=== PATIENT | female | born 1935 | race Caucasian/White ===

== ENCOUNTER 2020-11-01 19:04 | Observation (INO) | payer MEDICARE, BC ==
[~2020-11-01] VITALS: Ht 157.5 cm; Wt 42.8 kg
[2020-11-01 20:29] LABS: BASOPHILS % (AUTO) 0.5 % (0-1); EOSINOPHILS % (AUTO) 0.1 % (0-6); HEMATOCRIT 42.9 % (35.0-45.0); HEMOGLOBIN 14.2 g/dl (12.0-16.0); LYMPHOCYTES # (AUTO) 0.9 X10'3 (1.1-4.8); LYMPHOCYTES % (AUTO) 9.7 % (21-51); MEAN CORPUSCULAR HEMOGLOBIN 30.9 PG (27.0-31.0); MEAN CORPUSCULAR HGB CONC 33.1 g/dL (33.0-36.5); MEAN CORPUSCULAR VOLUME 93.4 FL (78-98); MEAN PLATELET VOLUME 6.5 FL (7.4-10.4); MONOCYTES # (AUTO) 0.4 X10'3 (0-0.9); MONOCYTES % (AUTO) 4.4 % (2-12); NEUTROPHILS # (AUTO) 7.7 X10'3 (1.8-7.7); NEUTROPHILS % (AUTO) 85.3 % (42-75); PLATELET COUNT 318 X10'3 (140-440); RED CELL DISTRIBUTION WIDTH 13.6 % (11.5-14.5)
[2020-11-01 20:50] LABS: ALANINE AMINOTRANSFERASE 27 U/L (12-78); ALBUMIN 4.3 G/DL (3.4-5.0); ALBUMIN/GLOBULIN RATIO 1.2 (1.1-1.5); ALKALINE PHOSPHATASE 65 IU/L (46-116); ANION GAP 14 (8-16); ASPARTATE AMINO TRANSFERASE 24 U/L (10-37); BILIRUBIN,TOTAL 0.6 MG/DL (0.1-1.0); BLOOD UREA NITROGEN 22 MG/DL (7-18); BUN/CREATININE RATIO 12.3 (6.6-38.0); CALCIUM 9.3 MG/DL (8.5-10.1); CHLORIDE 98 MMOL/L (99-107); CREATININE 1.79 MG/DL (0.40-0.90); GLUCOSE 109 MG/DL (70-104); POTASSIUM 4.7 MMOL/L (3.5-5.1); SODIUM 137 MMOL/L (135-145); TOTAL CARBON DIOXIDE 25.5 MMOL/L (24-32); TOTAL PROTEIN 7.8 G/DL (6.4-8.2); eGFR 27 ML/MIN
[2020-11-01] MEDS ORDERED: normal saline 1000ml 1,000 ML IV ONE (21:05)
[2020-11-01 21:35] LABS: TROPONIN I < 0.04 NG/ML (0.0-0.05)
[2020-11-01 21:38] LABS: CLARITY,URINE CLEAR (Clear); COLOR,URINE YELLOW (Yellow); GLUCOSE, URINE NEGATIVE (Neg); KETONES,URINE NEGATIVE (Neg); OCCULT BLOOD,URINE NEGATIVE (Neg); PH,URINE 7.5 (4.8-8.0); PROTEIN,URINE NEGATIVE (Neg); UA COLLECTION TYPE URINAL
[2020-11-01 21:39] LABS: LEUKOCYTE ESTERASE ,URINE MODERATE (Neg); NITRITES, URINE NEGATIVE (Neg); RBC,URINE 0-2 /HPF (0-2); UROBILINOGEN,URINE 0.2 E.U/dL (0.2-1.0)
[2020-11-01 21:40] LABS: BACTERIA,URINE NONE SEEN /HPF (Neg); SQUAMOUS EPITHELIAL CELL,UR FEW /LPF (FEW); WBC,URINE 0-4 /HPF (0-4)
[2020-11-01 21:58] LABS: URINE AMPHETAMINE SCREEN NEGATIVE (Neg); URINE BARBITUATE SCREEN NEGATIVE (Neg); URINE BENZODIAZEPINES SCREEN NEGATIVE (Neg); URINE CANNABINOID SCREEN NEGATIVE (Neg); URINE COCAINE SCREEN NEGATIVE (Neg); URINE METHADONE SCREEN NEGATIVE (Neg); URINE OPIATE SCREEN NEGATIVE (Neg); URINE PHENCYCLIDINE SCREEN NEGATIVE (Neg)
[2020-11-01] MEDS ORDERED: CefTRIAXone 1000mg IM Kit (w/lidocaine diluent) IM ONE (23:20)
[2020-11-02] MEDS ORDERED: CefTRIAXone/D5W-Rocephin 1gm 50 ML IV ONE (00:35)
[2020-11-02] MEDS ORDERED: acetaminophen 325mg tablet PO ONE (00:45)
[2020-11-02] MEDS ORDERED: potassium Cl 40MEQ/1/2NS 520ml 520 ML IV PRN ×2 (02:05)
[2020-11-02] MEDS ORDERED: potassium Cl 20 mEq SR tablet PO PRN ×2 (02:05)
[2020-11-02] MEDS ORDERED: ondansetron/PF 4mg/2ml inj IV PRN (02:05)
[2020-11-02] MEDS ORDERED: magnesium Cl slow-release 64mg tablet PO PRN (02:05)
[2020-11-02] MEDS ORDERED: acetaminophen 325mg tablet PO PRN (02:05)
[2020-11-02] MEDS ORDERED: magnesium 4gm in 100ml NS 100 ML IV PRN (02:05)
[2020-11-02] MEDS ORDERED: magnesium 2GM in 50ml NS 50 ML IV PRN (02:05)
--- NOTE | 2020-11-02 04:00 | NUR ---
attempted to comlpete med rec. pt doesn't know medications as there were recent medication changes in past month. pharmacy aware and will call for updated medcation list in mookie morning.
--- NOTE | 2020-11-02 07:06 | NUR ---
patient received on bed asleep.
[2020-11-02] MEDS ORDERED: K and/or MAG REPLACEMENT MC SCH (08:00)
[2020-11-02] MEDS ORDERED: PERFLUTREN PROTEIN-A MICROSPHR (Optison) 0.22 MG/ML 3ML VIAL IV ONE (08:00)
--- NOTE | 2020-11-02 08:26 | NUR ---
patient placed into a gown,up in the bathroom with steady gait.Vital signs rechecked.
--- NOTE | 2020-11-02 09:39 | NUR ---
patient ate breakfast.
--- NOTE | 2020-11-02 10:52 | NUR ---
paged Dr. Alarcon to address med rec.
[2020-11-02] MEDS ORDERED: LOSA25TA96 PO (10:54)
[2020-11-02] MEDS ORDERED: PRAM2.252 PO (10:54)
--- NOTE | 2020-11-02 12:13 | NUR ---
Dr. Alarcon here, reminded MD regarding med rec.
--- NOTE | 2020-11-02 12:14 | NUR ---
patient back from MRI.
--- NOTE | 2020-11-02 12:19 | NUR ---
awaiting MRI result.
[2020-11-02] MEDS ORDERED: GABA-530 PO (13:24)
[2020-11-02] MEDS ORDERED: VORT20TA PO (13:24)
[2020-11-02] MEDS ORDERED: DICL50TA14 PO (13:24)
[2020-11-02] MEDS ORDERED: PRAM0.375 PO (13:24)
[2020-11-02] MEDS ORDERED: NEBI5TAB10 PO (13:24)
[2020-11-02] MEDS ORDERED: FURO20TA4 PO (13:24)
[2020-11-02] MEDS ORDERED: ROSU40TA22 PO (13:24)
[2020-11-02] MEDS ORDERED: LOSA50TA64 PO (13:24)
[2020-11-02] MEDS ORDERED: FLUT16SP26 BOTHNARES (13:24)
--- NOTE | 2020-11-02 13:25 | NUR ---
computer service technician at bedside.
[2020-11-02] MEDS ORDERED: ASPI-1264 PO (16:02)
[2020-11-02 16:48] VITALS: BP 176/94
[2020-11-02] MEDS ORDERED: SUMA100T16 PO (18:16)
== END 2020-11-02 19:00 | disposition home or self-care (01) ==
LOC: ER 19:05 → ED HOLD 11-02 02:01
PROVIDERS: ADMIT Internal Medicine; ATTEND Internal Medicine
DX: G43.909 Migraine, unspecified, not intractable, without status migrainosus (principal); I10 Essential (primary) hypertension; E78.5 Hyperlipidemia, unspecified; N39.0 Urinary tract infection, site not specified; G51.0 Bell's palsy; R47.81 Slurred speech; I25.10 Atherosclerotic heart disease of native coronary artery without angina pectoris; Z79.899 Other long term (current) drug therapy; Z79.82 Long term (current) use of aspirin; Z87.891 Personal history of nicotine dependence; Z95.1 Presence of aortocoronary bypass graft
CPT/HCPCS: 36415; 70450; 70544; 70547; 70551; 71045; 80053; 80305; 81001; 84484; 85025; 87088; 93005; 93306; 96361; 96365; 99285; G0378; J0696; J7030

== ENCOUNTER 2022-03-17 09:42 | Emergency (ER) | payer MEDICARE, BC ==
[~2022-03-17] VITALS: Ht 154.9 cm; Wt 45.5 kg
[~2022-03-17 09:42] MED LIST: DICL50TA14 PO; FLUT16SP26 BOTHNARES; FURO20TA4 PO; GABA-530 PO; LOSA50TA64 PO; NEBI5TAB10 PO; PRAM0.375 PO; ROSU40TA22 PO; SUMA100T16 PO; VORT20TA PO
[2022-03-17 10:12] VITALS: BP 191/97
== END 2022-03-17 11:58 | disposition home or self-care (01) ==
LOC: ER 09:42
DX: M48.061 Spinal stenosis, lumbar region without neurogenic claudication (principal)
CPT/HCPCS: 73502; 99283

== ENCOUNTER 2023-08-28 08:33 | Emergency (ER) | payer MEDICARE, BC ==
[~2023-08-28] VITALS: Ht 152.4 cm; Wt 42.8 kg
[~2023-08-28 08:33] MED LIST changes: -NEBI5TAB10 PO; +NEBI5TAB9 PO; -ROSU40TA22 PO; +ROSU40TA71 PO
[2023-08-28 10:26] LABS: BASOPHILS # (AUTO) 0.1 X10'3 (0-0.2); BASOPHILS % (AUTO) 1.3 % (0-1); EOSINOPHILS # (AUTO) 0.3 X10'3 (0-0.9); EOSINOPHILS % (AUTO) 4.9 % (0-6); HEMATOCRIT 35.3 % (35.0-45.0); HEMOGLOBIN 11.5 g/dl (12.0-16.0); LYMPHOCYTES # (AUTO) 1.6 X10'3 (1.1-4.8); LYMPHOCYTES % (AUTO) 24.9 % (21-51); MEAN CORPUSCULAR HEMOGLOBIN 29.8 PG (27.0-31.0); MEAN CORPUSCULAR HGB CONC 32.7 g/dL (33.0-36.5); MEAN PLATELET VOLUME 6.7 FL (7.4-10.4); MONOCYTES # (AUTO) 0.8 X10'3 (0-0.9); MONOCYTES % (AUTO) 12.1 % (2-12); NEUTROPHILS # (AUTO) 3.7 X10'3 (1.8-7.7); NEUTROPHILS % (AUTO) 56.8 % (42-75); PLATELET COUNT 303 X10'3 (140-440); RED BLOOD COUNT 3.88 X10'6 (4.20-5.60); RED CELL DISTRIBUTION WIDTH 14.8 % (11.5-14.5); WHITE BLOOD COUNT 6.5 X10'3 (4.5-11.0)
[2023-08-28 10:46] LABS: ALANINE AMINOTRANSFERASE 23 U/L (12-78); ALBUMIN 3.4 G/DL (3.4-5.0); ALBUMIN/GLOBULIN RATIO 1.3 (1.1-1.5); ALKALINE PHOSPHATASE 86 IU/L (46-116); ANION GAP 8 (8-16); ASPARTATE AMINO TRANSFERASE 19 U/L (10-37); BILIRUBIN,TOTAL 0.4 MG/DL (0.1-1.0); BLOOD UREA NITROGEN 19 MG/DL (7-18); BUN/CREATININE RATIO 10.9 (10.0-20.0); CHLORIDE 97 MMOL/L (99-107); CREATININE 1.75 MG/DL (0.40-0.90); GLUCOSE 95 MG/DL (70-104); POTASSIUM 3.4 MMOL/L (3.5-5.1); SODIUM 131 MMOL/L (135-145); TOTAL CARBON DIOXIDE 26.5 MMOL/L (24-32); eCRCL 16 ML/MIN; eGFR 28 ML/MIN
[2023-08-28] MEDS ORDERED: HYDR-3965 PO (12:55)
[2023-08-28 13:25] VITALS: BP 154/76; PULSE 74; RESP 18; TEMP 97.7; O2SAT 99
[2023-08-29] MEDS ORDERED: HYDR-3965 PO ×2 (11:48→11:49)
== END 2023-08-28 13:25 | disposition home or self-care (01) ==
LOC: ER 08:34
DX: M25.512 Pain in left shoulder (principal); M54.2 Cervicalgia; Z79.899 Other long term (current) drug therapy
CPT/HCPCS: 36415; 71045; 72125; 73030; 80053; 84484; 85025; 93005; 99285

== ENCOUNTER 2024-01-09 15:40 | Emergency (ER) | payer MEDICARE, BC ==
[~2024-01-09] VITALS: Ht 152.4 cm; Wt 41.8 kg
[~2024-01-09 15:40] MED LIST changes: -DICL50TA14 PO; +HYDR-3965 PO; -PRAM0.375 PO; -ROSU40TA71 PO; -SUMA100T16 PO; -VORT20TA PO
[2024-01-09 16:23] LABS: BASOPHILS % (AUTO) 0.4 % (0-1); EOSINOPHILS % (AUTO) 0.2 % (0-6); HEMOGLOBIN 9.4 g/dl (12.0-16.0); LYMPHOCYTES # (AUTO) 0.8 X10'3 (1.1-4.8); LYMPHOCYTES % (AUTO) 10.3 % (21-51); MEAN CORPUSCULAR HEMOGLOBIN 31.5 PG (27.0-31.0); MEAN CORPUSCULAR HGB CONC 33.4 g/dL (33.0-36.5); MEAN CORPUSCULAR VOLUME 94.2 FL (78-98); MEAN PLATELET VOLUME 6.8 FL (7.4-10.4); MONOCYTES # (AUTO) 0.5 X10'3 (0-0.9); MONOCYTES % (AUTO) 6.7 % (2-12); NEUTROPHILS # (AUTO) 6.2 X10'3 (1.8-7.7); NEUTROPHILS % (AUTO) 82.4 % (42-75); PLATELET COUNT 384 X10'3 (140-440); RED BLOOD COUNT 2.98 X10'6 (4.20-5.60); RED CELL DISTRIBUTION WIDTH 14.7 % (11.5-14.5); WHITE BLOOD COUNT 7.5 X10'3 (4.5-11.0)
[2024-01-09 16:38] LABS: ANION GAP 12 (8-16); BLOOD UREA NITROGEN 42 MG/DL (7-18); BUN/CREATININE RATIO 14.2 (10.0-20.0); CALCIUM 8.9 MG/DL (8.5-10.1); CHLORIDE 99 MMOL/L (99-107); CREATININE 2.96 MG/DL (0.40-0.90); GLUCOSE 107 MG/DL (70-104); MAGNESIUM 2.3 MG/DL (1.5-2.4); POTASSIUM 3.8 MMOL/L (3.5-5.1); PRO BRAIN NATRIURETIC PEPTIDE 1728 PG/ML (0-450); SODIUM 134 MMOL/L (135-145); TOTAL CARBON DIOXIDE 22.7 MMOL/L (24-32); eCRCL 9 ML/MIN; eGFR 15 ML/MIN
[2024-01-09] MEDS: normal saline 500ml IV soln 500 ML IV ONE (20:30)
[2024-01-09 20:59] LABS: BILIRUBIN,URINE NEGATIVE (Neg); CLARITY,URINE CLEAR (Clear); COLOR,URINE YELLOW (Yellow); GLUCOSE, URINE NEGATIVE (Neg); KETONES,URINE TRACE mg/dl (Neg); LEUKOCYTE ESTERASE ,URINE SMALL (Neg); NITRITES, URINE NEGATIVE (Neg); OCCULT BLOOD,URINE NEGATIVE (Neg); PH,URINE 5.5 (4.8-8.0); PROTEIN,URINE NEGATIVE (Neg); UROBILINOGEN,URINE 0.2 E.U/dL (0.2-1.0)
[2024-01-09 21:02] LABS: UA COLLECTION TYPE CLN CATCH MIDSTREAM
[2024-01-09] MEDS ORDERED: CEPH-585 PO (21:12)
[2024-01-09 21:13] LABS: BACTERIA,URINE FEW /HPF (Neg); MUCUS STRANDS MODERATE /LPF (Neg); SQUAMOUS EPITHELIAL CELL,UR MODERATE /LPF (FEW); TRANSITIONAL EPI CELLS,URINE FEW /HPF
[2024-01-09 21:14] LABS: HYALINE CASTS 0-3 /LPF (NEGATIVE); RBC,URINE NONE SEEN /HPF (0-2)
[2024-01-09] MEDS: aspirin 81mg tab.chew PO ONE (21:28)
[2024-01-09] MEDS: CefTRIAXone/D5W-Rocephin 1gm 50 ML IV ONE (21:28)
[2024-01-09 23:04] VITALS: BP 127/61; PULSE 87; RESP 15; TEMP 97.1; O2SAT 100
== END 2024-01-09 23:05 | disposition home or self-care (01) ==
LOC: ER 15:42
DX: E87.1 Hypo-osmolality and hyponatremia (principal); N39.0 Urinary tract infection, site not specified; Z79.52 Long term (current) use of systemic steroids; Z79.899 Other long term (current) drug therapy
CPT/HCPCS: 36415; 71045; 80048; 81001; 83735; 83880; 84484; 85025; 87088; 93005; 96361; 96365; 99285; J0696; J7030; J7040

== ENCOUNTER 2024-01-24 12:52 | Inpatient (IN) | payer MEDICARE, BC ==
[~2024-01-24] VITALS: Ht 157.5 cm; Wt 43.1 kg
[2024-01-24 13:30] LABS: BASOPHILS % (AUTO) 0.6 % (0-1); EOSINOPHILS % (AUTO) 0.5 % (0-6); HEMATOCRIT 25.9 % (35.0-45.0); HEMOGLOBIN 8.6 g/dl (12.0-16.0); LYMPHOCYTES # (AUTO) 1.5 X10'3 (1.1-4.8); LYMPHOCYTES % (AUTO) 19.1 % (21-51); MEAN CORPUSCULAR HEMOGLOBIN 30.4 PG (27.0-31.0); MEAN CORPUSCULAR VOLUME 92.1 FL (78-98); MEAN PLATELET VOLUME 6.7 FL (7.4-10.4); MONOCYTES # (AUTO) 0.7 X10'3 (0-0.9); MONOCYTES % (AUTO) 8.8 % (2-12); NEUTROPHILS # (AUTO) 5.6 X10'3 (1.8-7.7); PLATELET COUNT 415 X10'3 (140-440); RED BLOOD COUNT 2.81 X10'6 (4.20-5.60); WHITE BLOOD COUNT 7.9 X10'3 (4.5-11.0)
[2024-01-24 13:37] LABS: ALANINE AMINOTRANSFERASE 20 U/L (12-78); ALBUMIN 3.5 G/DL (3.4-5.0); ALBUMIN/GLOBULIN RATIO 1.1 (1.1-1.5); ALKALINE PHOSPHATASE 86 IU/L (46-116); ANION GAP 9 (8-16); ASPARTATE AMINO TRANSFERASE 20 U/L (10-37); BILIRUBIN,TOTAL 0.4 MG/DL (0.1-1.0); BLOOD UREA NITROGEN 14 MG/DL (7-18); BUN/CREATININE RATIO 7.4 (10.0-20.0); CALCIUM 8.4 MG/DL (8.5-10.1); CHLORIDE 99 MMOL/L (99-107); CREATININE 1.88 MG/DL (0.40-0.90); GLUCOSE 111 MG/DL (70-104); POTASSIUM 3.7 MMOL/L (3.5-5.1); SODIUM 133 MMOL/L (135-145); TOTAL CARBON DIOXIDE 24.6 MMOL/L (24-32); TOTAL PROTEIN 6.6 G/DL (6.4-8.2); eCRCL 15 ML/MIN; eGFR 25 ML/MIN
[2024-01-24 13:44] LABS: PRO BRAIN NATRIURETIC PEPTIDE 3747 PG/ML (0-450)
[2024-01-24] MEDS ORDERED: enoxaparin 100mg/ml syringe SUBCUT ONE (18:55)
[2024-01-24] MEDS: enoxaparin 40mg/0.4ml syringe SUBCUT ONE (19:20)
[2024-01-24 20:38] LABS: APTT 27 SECONDS (22-32); PROTHROMBIN TIME 10.8 SECONDS (9.0-12.0)
[2024-01-24] MEDS ORDERED: nitroGLYCERIN 0.4mg SUBLingual tab SL PRN (21:50)
[2024-01-24] MEDS ORDERED: metoprolol tartrate 1mg/ml inj IV PRN (21:50)
[2024-01-24] MEDS ORDERED: potassium Cl 40MEQ/1/2NS 520ml 520 ML IV PRN (21:50)
[2024-01-24] MEDS ORDERED: aminophylline 250mg/10ml inj. IV PRN (21:50)
[2024-01-24] MEDS ORDERED: magnesium Cl slow-release 64mg tablet PO PRN (21:50)
[2024-01-24] MEDS ORDERED: potassium Cl 20 mEq SR tablet PO PRN ×2 (21:50)
[2024-01-24] MEDS ORDERED: magnesium sulf-water 4G/100mL 100 ML IV PRN (21:50)
[2024-01-24] MEDS ORDERED: ondansetron/PF 4mg/2ml inj IV PRN (21:50)
[2024-01-24] MEDS ORDERED: magnesium hydroxide 30ml (MOM) UD suspension PO PRN (21:50)
[2024-01-24] MEDS ORDERED: mag hydrox/Alum hydrox/simeth 30ml oral suspension PO PRN (21:50)
[2024-01-24] MEDS ORDERED: magnesium sulf-water 2g/50mL 50 ML IV PRN (21:50)
[2024-01-24] MEDS: PERFLUTREN PROTEIN-A MICROSPHR (Optison) 0.22 MG/ML 3ML VIAL IV ONE (22:08)
[2024-01-24] MEDS: Melatonin 3mg tablet PO STA (23:51)
[2024-01-25] VITALS (22 sets, daily range): BP systolic 95–156; BP diastolic 42–82; PULSE 61–114; RESP 16–26; TEMP 96.7–99.1; O2SAT 93–100
[2024-01-25 03:17] LABS: BASOPHILS # (AUTO) 0.1 X10'3 (0-0.2); BASOPHILS % (AUTO) 0.8 % (0-1); EOSINOPHILS # (AUTO) 0.1 X10'3 (0-0.9); EOSINOPHILS % (AUTO) 1.2 % (0-6); LYMPHOCYTES # (AUTO) 2.1 X10'3 (1.1-4.8); MEAN CORPUSCULAR HEMOGLOBIN 30.5 PG (27.0-31.0); MEAN CORPUSCULAR HGB CONC 33.2 g/dL (33.0-36.5); MEAN PLATELET VOLUME 6.3 FL (7.4-10.4); MONOCYTES # (AUTO) 0.9 X10'3 (0-0.9); NEUTROPHILS # (AUTO) 4.5 X10'3 (1.8-7.7); PLATELET COUNT 333 X10'3 (140-440); RED BLOOD COUNT 2.31 X10'6 (4.20-5.60); RED CELL DISTRIBUTION WIDTH 15.2 % (11.5-14.5); WHITE BLOOD COUNT 7.6 X10'3 (4.5-11.0)
[2024-01-25 03:29] LABS: HEMATOCRIT 21.2 % (35.0-45.0)
[2024-01-25 03:40] LABS: ALBUMIN 2.8 G/DL (3.4-5.0); ANION GAP 6 (8-16); BLOOD UREA NITROGEN 27 MG/DL (7-18); BUN/CREATININE RATIO 15.3 (10.0-20.0); CALCIUM 8.1 MG/DL (8.5-10.1); CHLORIDE 100 MMOL/L (99-107); CREATININE 1.76 MG/DL (0.40-0.90); GLUCOSE 93 MG/DL (70-104); MAGNESIUM 1.9 MG/DL (1.5-2.4); SODIUM 133 MMOL/L (135-145); eCRCL 16 ML/MIN; eGFR 27 ML/MIN
[2024-01-25 04:03] LABS: FERRITIN 13 NG/ML (8-252)
[2024-01-25] MEDS: docusate sod 100mg capsule PO SCH (08:00)
[2024-01-25] MEDS: K and/or MAG REPLACEMENT MC SCH (08:00)
[2024-01-25 08:16] LABS: BASOPHILS # (AUTO) 0.1 X10'3 (0-0.2); BASOPHILS % (AUTO) 0.5 % (0-1); EOSINOPHILS # (AUTO) 0.1 X10'3 (0-0.9); EOSINOPHILS % (AUTO) 0.7 % (0-6); LYMPHOCYTES # (AUTO) 1.4 X10'3 (1.1-4.8); LYMPHOCYTES % (AUTO) 13.5 % (21-51); MEAN CORPUSCULAR HEMOGLOBIN 29.7 PG (27.0-31.0); MEAN CORPUSCULAR HGB CONC 32.1 g/dL (33.0-36.5); MEAN CORPUSCULAR VOLUME 92.8 FL (78-98); MEAN PLATELET VOLUME 7.3 FL (7.4-10.4); MONOCYTES % (AUTO) 9.2 % (2-12); NEUTROPHILS # (AUTO) 8.1 X10'3 (1.8-7.7); NEUTROPHILS % (AUTO) 76.1 % (42-75); PLATELET COUNT 347 X10'3 (140-440); RED BLOOD COUNT 2.24 X10'6 (4.20-5.60); WHITE BLOOD COUNT 10.6 X10'3 (4.5-11.0)
[2024-01-25 08:28] LABS: HEMATOCRIT 20.8 % (35.0-45.0); HEMOGLOBIN 6.7 g/dl (12.0-16.0)
[2024-01-25] MEDS ORDERED: aspirin 81mg tab.chew PO SCH (08:30)
[2024-01-25 08:35] LABS: ALANINE AMINOTRANSFERASE 18 U/L (12-78); ALKALINE PHOSPHATASE 70 IU/L (46-116); ASPARTATE AMINO TRANSFERASE 18 U/L (10-37); BILIRUBIN,TOTAL 0.3 MG/DL (0.1-1.0); TOTAL PROTEIN 5.5 G/DL (6.4-8.2)
[2024-01-25 09:19] LABS: OCCULT BLOOD STOOL POSITIVE (Neg)
[2024-01-25] MEDS: normal saline 500ml IV soln 500 ML IV ONE (09:22)
[2024-01-25] MEDS: acetaminophen 1,000mg/100ml IV 100 ML IV ONE (10:05)
[2024-01-25] MEDS: regadenoson 0.4mg/5ml syringe IV PRN (10:47)
[2024-01-25 12:01] LABS: % IRON SATURATION 18 % (11-46); IRON 52 UG/DL (49-151); TOTAL IRON BINDING CAPACITY 296 UG/DL (259-388)
[2024-01-25] MEDS ORDERED: morphine 2 MG/ML inj. syringe IV PRN (12:30)
[2024-01-25] MEDS: pantoprazole 40MG/NS 100ML BAG 100 ML IV SCH (13:11)
[2024-01-25] MEDS: morphine 2 MG/ML inj. syringe IV PRN ×2 (15:01→23:23)
[2024-01-25] MEDS ORDERED: MEMA10TA22 PO (15:44)
[2024-01-25] MEDS ORDERED: FURO-150 PO (15:52)
[2024-01-25] MEDS ORDERED: pantoprazole 40MG/NS 100ML BAG 100 ML IV SCH (16:00)
[2024-01-25] MEDS ORDERED: pneumococcal 23-VAL P-sac vacc 25 mcg/0.5ml vial IMVAC ONE (16:15)
[2024-01-25] MEDS ORDERED: enoxaparin 40mg/0.4ml syringe SQ SCH (20:00)
[2024-01-25 20:32] LABS: HEMOGLOBIN 7.2 g/dl (12.0-16.0); MEAN CORPUSCULAR HEMOGLOBIN 29.4 PG (27.0-31.0); MEAN CORPUSCULAR HGB CONC 33.5 g/dL (33.0-36.5); MEAN CORPUSCULAR VOLUME 87.8 FL (78-98); MEAN PLATELET VOLUME 6.9 FL (7.4-10.4); PLATELET COUNT 253 X10'3 (140-440); RED BLOOD COUNT 2.45 X10'6 (4.20-5.60); RED CELL DISTRIBUTION WIDTH 16.7 % (11.5-14.5); WHITE BLOOD COUNT 7.3 X10'3 (4.5-11.0)
[2024-01-25 20:35] LABS: HEMATOCRIT 21.5 % (35.0-45.0)
[2024-01-26] VITALS (8 sets, daily range): BP systolic 129–162; BP diastolic 62–73; PULSE 75–84; RESP 13–25; TEMP 97.6–99.1; O2SAT 95–99
[2024-01-26 06:16] LABS: BASOPHILS % (AUTO) 0.3 % (0-1); EOSINOPHILS # (AUTO) 0.1 X10'3 (0-0.9); EOSINOPHILS % (AUTO) 0.9 % (0-6); HEMATOCRIT 27.9 % (35.0-45.0); HEMOGLOBIN 9.4 g/dl (12.0-16.0); LYMPHOCYTES # (AUTO) 0.8 X10'3 (1.1-4.8); LYMPHOCYTES % (AUTO) 8.7 % (21-51); MEAN CORPUSCULAR HEMOGLOBIN 29.6 PG (27.0-31.0); MEAN CORPUSCULAR HGB CONC 33.8 g/dL (33.0-36.5); MEAN CORPUSCULAR VOLUME 87.6 FL (78-98); MEAN PLATELET VOLUME 6.8 FL (7.4-10.4); MONOCYTES # (AUTO) 0.9 X10'3 (0-0.9); MONOCYTES % (AUTO) 9.8 % (2-12); NEUTROPHILS # (AUTO) 7.6 X10'3 (1.8-7.7); NEUTROPHILS % (AUTO) 80.3 % (42-75); PLATELET COUNT 249 X10'3 (140-440); RED BLOOD COUNT 3.18 X10'6 (4.20-5.60); RED CELL DISTRIBUTION WIDTH 15.9 % (11.5-14.5); WHITE BLOOD COUNT 9.5 X10'3 (4.5-11.0)
[2024-01-26 06:20] LABS: ALBUMIN 2.7 G/DL (3.4-5.0); ANION GAP 10 (8-16); BLOOD UREA NITROGEN 40 MG/DL (7-18); BUN/CREATININE RATIO 23.5 (10.0-20.0); CHLORIDE 109 MMOL/L (99-107); GLUCOSE 83 MG/DL (70-104); MAGNESIUM 1.8 MG/DL (1.5-2.4); POTASSIUM 3.6 MMOL/L (3.5-5.1); SODIUM 141 MMOL/L (135-145); TOTAL CARBON DIOXIDE 21.8 MMOL/L (24-32); eCRCL 16 ML/MIN; eGFR 28 ML/MIN
[2024-01-26] MEDS: acetaminophen 325mg tablet PO PRN (11:25)
[2024-01-26] MEDS: pneumococcal 23-VAL P-sac vacc 25 mcg/0.5ml vial IMVAC ONE (19:49)
[2024-01-27] VITALS (14 sets, daily range): BP systolic 128–154; BP diastolic 56–70; PULSE 64–72; RESP 10–30; TEMP 97.3–97.7; O2SAT 93–99
[2024-01-27 06:11] LABS: BASOPHILS # (AUTO) 0.1 X10'3 (0-0.2); BASOPHILS % (AUTO) 0.8 % (0-1); EOSINOPHILS # (AUTO) 0.3 X10'3 (0-0.9); EOSINOPHILS % (AUTO) 3.8 % (0-6); HEMATOCRIT 25.4 % (35.0-45.0); HEMOGLOBIN 8.6 g/dl (12.0-16.0); LYMPHOCYTES # (AUTO) 1.3 X10'3 (1.1-4.8); LYMPHOCYTES % (AUTO) 18.5 % (21-51); MEAN CORPUSCULAR HEMOGLOBIN 29.9 PG (27.0-31.0); MEAN CORPUSCULAR HGB CONC 33.7 g/dL (33.0-36.5); MEAN CORPUSCULAR VOLUME 88.7 FL (78-98); MEAN PLATELET VOLUME 6.6 FL (7.4-10.4); MONOCYTES # (AUTO) 0.7 X10'3 (0-0.9); MONOCYTES % (AUTO) 9.2 % (2-12); NEUTROPHILS # (AUTO) 4.9 X10'3 (1.8-7.7); NEUTROPHILS % (AUTO) 67.7 % (42-75); PLATELET COUNT 230 X10'3 (140-440); RED BLOOD COUNT 2.86 X10'6 (4.20-5.60); WHITE BLOOD COUNT 7.2 X10'3 (4.5-11.0)
[2024-01-27 06:34] LABS: ALBUMIN 2.3 G/DL (3.4-5.0); ANION GAP 9 (8-16); BLOOD UREA NITROGEN 30 MG/DL (7-18); BUN/CREATININE RATIO 18.4 (10.0-20.0); CALCIUM 8.1 MG/DL (8.5-10.1); CHLORIDE 108 MMOL/L (99-107); CREATININE 1.63 MG/DL (0.40-0.90); GLUCOSE 90 MG/DL (70-104); MAGNESIUM 1.9 MG/DL (1.5-2.4); POTASSIUM 3.8 MMOL/L (3.5-5.1); SODIUM 139 MMOL/L (135-145); TOTAL CARBON DIOXIDE 21.6 MMOL/L (24-32); eCRCL 17 ML/MIN; eGFR 30 ML/MIN
[2024-01-27] MEDS ORDERED: LIDOcaine 2% Viscous 15ml cup ONE (11:30)
[2024-01-27] MEDS ORDERED: fentaNYL/PF 50MCG/1 ML 2ML syringe ONE (12:51)
[2024-01-27] MEDS ORDERED: MIDAZolam 1 MG/ML 5ML VIAL ONE (12:51)
[2024-01-27] MEDS ORDERED: FERR210T PO (17:34)
[2024-01-27] MEDS ORDERED: PANT40TA54 PO (17:34)
[2024-02-02] MEDS ORDERED: PANT40TA54 PO (10:56)
== END 2024-01-27 18:35 | disposition home health service (06) | DRG 377 ==
LOC: ER 12:53 → OBSVTOIN 21:56 → ED HOLD 21:56 → ORTHO 4S 01-25 07:03
PROVIDERS: ADMIT Internal Medicine Critical Care Medicine; ATTEND Family Medicine
PROC: 30233N1 Transfusion of Nonautologous Red Blood Cells into Peripheral Vein, Percutaneous Approach (ICD-10-PCS; 2024-01-25)
PROC: 4A02XM4 Measurement of Cardiac Total Activity, External Approach (ICD-10-PCS; 2024-01-25)
PROC: 3E033HZ Introduction of Radioactive Substance into Peripheral Vein, Percutaneous Approach (ICD-10-PCS; 2024-01-25)
PROC: 0DB68ZX Excision of Stomach, Via Natural or Artificial Opening Endoscopic, Diagnostic (ICD-10-PCS; principal; 2024-01-27)
DX: K29.01 Acute gastritis with bleeding (principal); E43 Unspecified severe protein-calorie malnutrition; D62 Acute posthemorrhagic anemia; I25.110 Atherosclerotic heart disease of native coronary artery with unstable angina pectoris; I13.0 Hypertensive heart and chronic kidney disease with heart failure and stage 1 through stage 4 chronic kidney disease, or unspecified chronic kidney disease; N18.4 Chronic kidney disease, stage 4 (severe); Z68.1 Body mass index [BMI] 19.9 or less, adult; G25.81 Restless legs syndrome; E78.00 Pure hypercholesterolemia, unspecified; I50.9 Heart failure, unspecified; K44.9 Diaphragmatic hernia without obstruction or gangrene; F03.90 Unspecified dementia, unspecified severity, without behavioral disturbance, psychotic disturbance, mood disturbance, and anxiety; K31.89 Other diseases of stomach and duodenum; Z95.5 Presence of coronary angioplasty implant and graft; Z95.1 Presence of aortocoronary bypass graft; Z90.710 Acquired absence of both cervix and uterus; Z87.891 Personal history of nicotine dependence
CPT/HCPCS: 36415; 36430; 43239; 71045; 78452; 80048; 80053; 82272; 82728; 83540; 83550; 83735; 83880; 84484; 85025; 85027; 85610; 85730; 86870; 86885; 86900; 86901; 86902; 86905; 86922; 87081; 90732; 93005; 93017; 99152; 99285; A4615; A4620; A9500; G0378; J0131; J1650; J2250; J2270; J2470; J2785; J3010; J7030; J7040; P9016

== ENCOUNTER 2024-09-13 08:08 | Emergency (ER) | payer MEDICARE, BC ==
[~2024-09-13] VITALS: Ht 154.9 cm; Wt 40.6 kg
[~2024-09-13 08:08] MED LIST changes: +AMLO2.5T2 PO; +FERR210T PO; -FLUT16SP26 BOTHNARES; -FURO20TA4 PO; -GABA-530 PO; -HYDR-3965 PO; +HYDR12.55 PO; -LOSA50TA64 PO; +MEMA10TA22 PO; +MULT-1141 PO; -NEBI5TAB9 PO; +PANT40TA54 PO; +VITA-268 PO
[2024-09-13 08:23] VITALS: BP 163/81; PULSE 71; RESP 14; O2SAT 96
--- NOTE | 2024-09-13 09:47 | RADIOLOGY REPORT ---
EXAM: DI SHOULDER, COMPLETE (MIN 2 VWS) HISTORY: pain RIGHT COMPARISON: DI SHOULDER, COMPLETE (MIN 2 VWS) on DOS: 08/28/23 TECHNIQUE: 3 views of the right shoulder were performed. FINDINGS: No acute fracture or dislocation are identified about the right shoulder. There is acromioclavicular hypertrophy. There is loss of subacromial space on the external rotation view. 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 There are postoperative changes of median sternotomy. There is t horacic degenerative disc disease. There is a possible mid thoracic compression fracture, although t he thoracic spine is not fully imaged here. IMPRESSION: 1. No acute fracture of the right shoulder. 2. Acromioclavicular and glenohumeral degenerative changes with loss of subacromial space suggestive of significant rotator cuff tendinopathy.
--- NOTE | 2024-09-13 10:29 | Physician Documentation ---
History of Present Illness ~ Chief Complaint: Shoulder pain Stated Complaint: SHOULDER PAIN Time Seen by MD: 08:52 Primary Medical Doctor: [facility] This 88-year-old female presents with a complaint of right shoulder pain which has been worsening in severity. She denies any acute injury. She does use a cane in the right side.. She states she has grossly decreased range of motion due to pain. Tetanus within 5 years?: No Medication Reconciliation Allergies: Coded Allergies: No Known Allergies (Unverified , 09/13/24) Scheduled Amlodipine* (Norvasc*), 2 TAB PO DAILY, (Reported) Diclofenac Sodium (Voltaren Arthritis Pain), 1 APPLIC TOP BID Ferric Citrate (Ferric Citrate), 1 TAB PO Q8H Hydrochlorothiazide (Hydrochlorothiazide), 1 TAB PO DAILY, (Reported) Memantine HCl (Memantine HCl), 1 TAB PO DAILY, (Reported) Mu-Vits-Min Th/Lycopene/Lutein (Centrum Silver Tablet), 1 TAB PO DAILY, (Reported) Pantoprazole Sodium (Pantoprazole Sodium), 40 MG PO BID Vitamin B Complex (B Complex), 1 TAB PO DAILY, (Reported) Past Medical History Past Medical History: Dementia, Coronary Artery Disease, Congestive Heart Failure, High Cholesterol, Hypertension, GI Bleed, Anemia, Chronic Kidney Disea se Past Surgical History: noncontributory Alcohol Use: None Drug Use: none Review of Systems All Other Systems at this time: Reviewed and Negative ROS As stated above in the HPI, otherwise all systems are reviewed and negative. Physical Exam Vital Signs: Temperature: 98.9, Source: Temporal, Heart Rate: 71, Respiratory Rate: 14, BP: 163/81, Pulse Oximetry: 96, Weight: 40.600 Oxygen Flow Rate: 0 Physical Exam General: Alert, no apparent distress. Extremities: Grossly diminished range of motion of the right arm. Patient unable to get her arm up to shoulder level.. No evidence of deformity Neurologic: Oriented x4. Psychiatric: Normal mood and affect. Skin: Normal color, warm and dry. No edema, no ecchymosis. Progress Results/Orders Results/Orders Orders - ROJAS MEDINA PACKING CLERK Shoulder, Complete (Min 2 Vws) (09/13/24 09:16) Completed Orders - ROJAS MEDINA PACKING CLERK Shoulder, Complete (Min 2 Vws) (09/13/24 09:16) Vital Signs 09/13/24 08:23 Temp 98.9 Pulse 71 Resp 14 B/P (MAP) 163/81 Pulse Ox 96 O2 Flow Rate 0 Medical Decision Making Findings Sign my interpretation of the patient's x-ray I do not suspect any acute fractures however I am highly suspicious of rotator cuff tendonitis. This is likely due to ongoing cane use age and overuse. she will highly likely require extensive physical therapy for improved range of motion Differential Dx:Considerations: Include: AC separation, Adhesive capsulitis, arthritis, Bicipital tendonitis, Calcific tendonitis, Cervical disc disease, Contusion, Dislocation, Fracture: Humerus, Fracture: Scapula, Fracture: Clavicle, Gallbladder Disease, Hematoma, Impingement syndrome, Myocardial infarction, Neurovascular Injury, Rotator cuff injury, SC dislocation, Sprain, Subacromial bursitis, other Departure Disposition: 01 HOME / SELF CARE / HOMELESS Impression: Primary Impression: Shoulder pain Additional Impression: Tendinitis of shoulder Discharge Instructions: Shoulder Pain, [id number] Additional Instructions: Your shoulder pain is likely caused by tendonitis or inflammation of the tendons of your rotator cuff. He best form of treatment for this is physical therapy. You have an appointment at your doctor which I have established at 11:30 a.m. on Wednesday in order to obtain this specific referral. You may use Voltaren in the meantime as directed Referrals: NO PRIMARY CARE PROVIDER (PCP) Prescriptions Diclofenac Sodium (Voltaren Arthritis Pain) 1 % Gel..gram. 1 APPLIC TOP BID for pain for 10 Days, #30 GM Prov: ROJAS MEDINA NP 09/13/24 Signature Scribe Signature: e Attestation: Scribed for Rojas Medina Wireworker by Rojas Medina - TIAN . 09/13/24 10:45 ROJAS MEDINA NP Sep 13, 2024 10:29
[2024-09-13] MEDS ORDERED: DICL20GE TOP (10:45)
[2024-09-13 10:49] VITALS: TEMP 98.9
== END 2024-09-13 10:51 | disposition home or self-care (01) ==
LOC: ER 08:08
DX: M77.8 Other enthesopathies, not elsewhere classified (principal); E78.00 Pure hypercholesterolemia, unspecified; F03.90 Unspecified dementia, unspecified severity, without behavioral disturbance, psychotic disturbance, mood disturbance, and anxiety; I13.0 Hypertensive heart and chronic kidney disease with heart failure and stage 1 through stage 4 chronic kidney disease, or unspecified chronic kidney disease; I50.9 Heart failure, unspecified; N18.9 Chronic kidney disease, unspecified; I25.10 Atherosclerotic heart disease of native coronary artery without angina pectoris
CPT/HCPCS: 73030; 99283